=== PATIENT | female | born 1935 | race Caucasian/White ===

== ENCOUNTER 2018-02-19 14:59 | Inpatient (IN) | payer OTHER ==
--- NOTE | 2018-02-19 15:18 | PDOC ---
Rapid Medical Evaluation Chief Complaint: Syncope/Near Syncope Time Seen by Provider: 02/19/18 15:09 Medical Evaluation: Allergies Allergy/AdvReac Type Severity Reaction Status Date / Time No Known Allergies Allergy Verified 02/19/18 15:10 Vital Signs Temp Pulse Resp BP Pulse Ox 98.1 F 85 20 141/66 99 02/19/18 15:07 02/19/18 15:07 02/19/18 15:07 02/19/18 15:07 02/19/18 15:07 02/19/18 15:14 The patient presents with a chief complaint of: felt dizzy while shopping today and fell backwards landing on her buttocks now c/o rt hip pain and inability to stand up. Pt with high cholsterol and stated was dizzy last week, no other complaints I have performed a brief in-person evaluation of this patient: vss, limited exam since pt is in w/c upon EMS arrival Pertinent physical exam findings: ambulatory, in no respiratory distress I have ordered the following: labs, cxr, ekg, head ct, carotoid duplex, hip xray, urine The patient will proceed to the ED for further evaluation. Discharge Disposition - Diagnosis Dizziness - Referrals - Patient Instructions - Post Discharge Activity
[2018-02-19 15:38] LABS: BASO % 0.4 % (0-2.0); EOS % 0.5 % (0-4.5); HEMATOCRIT 39.1 % (32.4-45.2); HEMOGLOBIN 12.6 GM/dL (10.7-15.3); LYMPH % 7.9 % (8-40); MCH 29.6 pg (25.7-33.7); MCHC 32.1 g/dl (32.0-36.0); MEAN CELL VOLUME 92.2 fl (80-96); MEAN PLT VOLUME 6.7 fl (7.5-11.1); MONO % 4.3 % (3.8-10.2); NEUT % 86.9 % (42.8-82.8); PLATELET COUNT 322 K/MM3 (134-434); RBC 4.24 M/mm3 (3.60-5.2); RDW 12.9 % (11.6-15.6); WHITE BLOOD COUNT 13.1 K/mm3 (4.0-10.0)
[2018-02-19 16:03] LABS: INR 0.98 (0.83-1.09); PROTHROMBIN TIME (PATIENT) 11.6 SEC (9.7-13.0)
--- NOTE | 2018-02-19 16:04 | PDOC ---
History of Present Illness <Ruth Davidson - Last Filed: 02/19/18 20:34> - General History Source: Patient - History of Present Illness Initial Comments: 02/19/18 18:15 The patient is an 82 year old female with a PMH of HTN and Hypothyroidism was BIBA after falling at a department store earlier today. Patient states she was standing at [employer] looking at sweaters when she suddenly felt a pressure in her head and fell to her R side hitting her hip but not her head, denies any LOC. Further denies any pre-fall chest pain, shortness of breath, lightheadedness, palpitations. Notes a h/o headache and loose stools for the last 2-3 days. No previous h/o similar falls. Has been evaluated by cardiology (Dr. Chung, Dr. Rae) on prior occasion and states she had a stress test last year which she believes was normal. Family history significant for [place] in father, sister with carotid endartectomy in 2017. NKDA Surgical: none reported Social: denies toxic habits PMD: Dr. Hooper As per EMR, patient last evaluated in our ED in 2014 for diaphoresis and dizziness. Serial troponins were negative and Echo showed EF 59%. <Leigh Amaro - Last Filed: 02/19/18 20:53> - General Chief Complaint: Syncope/Near Syncope Stated Complaint: FALL Time Seen by Provider: 02/19/18 15:09 Past History <Ruth Davidson - Last Filed: 02/19/18 20:34> - Past Medical History COPD: No Hypercholesterolemia: Yes Thyroid Disease: Yes (HYPO) - Immunization History Immunization Up to Date: Yes - Suicide/Smoking/Psychosocial Hx Smoking Status: No Smoking History: Never smoked Have you smoked in the past 12 months: No Number of Cigarettes Smoked Daily: 0 Information on smoking cessation initiated: No Hx Alcohol Use: No Drug/Substance Use Hx: No <Leigh Amaro - Last Filed: 02/19/18 20:53> - Past Medical History Allergies/Adverse Reactions: Allergies Allergy/AdvReac Type Severity Reaction Status Date / Time No Known Allergies Allergy Verified 02/19/18 15:10 Home Medications: Ambulatory Orders Ascorbic Acid [Vitamin C] 1,000 mg PO DAILY 08/11/12 Aspirin 162 mg PO DAILY 08/11/12 Docosahexanoic Acid/Epa [Fish Oil Softgel] 1 each PO DAILY 08/11/12 Levothyroxine [Synthroid -] 50 mcg PO DAILY 08/11/12 Simvastatin [Zocor -] 20 mg PO HS 08/11/12 Levothyroxine Sodium [Synthroid] 50 mcg PO DAILY tablet 03/03/13 Simvastatin [Zocor] 20 mg PO DAILY tablet 03/03/13 Calcium Carbonate/Vitamin D3 [Calcium 600-Vit D3 200 Tablet] 1 each PO DAILY Review of Systems - Review of Systems Constitutional: No: Chills, Fever HEENTM: No: Recent change in vision Respiratory: No: Cough, Shortness of Breath, Wheezing, Hemoptysis ABD/GI: No: Constipated, Diarrhea, Nausea, Vomiting : No: Burning, Dysuria <Leigh Amaro - Last Filed: 02/19/18 20:53> *Physical Exam - Vital Signs Last Vital Signs Temp Pulse Resp BP Pulse Ox 98.1 F 85 20 141/66 99 02/19/18 15:07 02/19/18 15:07 02/19/18 15:07 02/19/18 15:07 02/19/18 15:07 <Ruth Davidson - Last Filed: 02/19/18 20:34> - Vital Signs Last Vital Signs Temp Pulse Resp BP Pulse Ox 98.1 F 85 20 141/66 99 02/19/18 15:07 02/19/18 15:07 02/19/18 15:07 02/19/18 15:07 02/19/18 15:07 - Physical Exam General Appearance: Yes: Nourished, Appropriately Dressed HEENT: positive: Normal Voice, Hearing Grossly Normal. negative: TM Bulging, TM Dull, Lesions, [place] Neck: positive: Trachea midline, Supple Respiratory/Chest: positive: Lungs Clear, Normal Breath Sounds Cardiovascular: positive: S1, S2. negative: Edema, JVD Vascular Pulses: Dorsalis-Pedis (R): 2+, Doralis-Pedis (L): 2+ Gastrointestinal/Abdominal: positive: Normal Bowel Sounds, Soft. negative: Distended, Guarding, Rebound, Tenderness Musculoskeletal: negative: Vertebral Tenderness Extremity: positive: Normal Capillary Refill, Normal Inspection, Pelvis Stable, Other (R anterior thigh TTP, 2+ DP pulse, ROM with pain) <SondraLeigh - Last Filed: 02/19/18 20:53> Moderate Sedation - Procedure Monitoring Vital Signs: Procedure Monitoring Vital Signs Temperature 98.1 F 02/19/18 15:07 Pulse Rate 85 02/19/18 15:07 Respiratory Rate 20 02/19/18 15:07 Blood Pressure 141/66 02/19/18 15:07 O2 Sat by Pulse Oximetry (%) 99 02/19/18 15:07 <Ruth Davidson - Last Filed: 02/19/18 20:34> - Procedure Monitoring Vital Signs: Procedure Monitoring Vital Signs Temperature 98.1 F 02/19/18 15:07 Pulse Rate 85 02/19/18 15:07 Respiratory Rate 20 02/19/18 15:07 Blood Pressure 141/66 02/19/18 15:07 O2 Sat by Pulse Oximetry (%) 99 02/19/18 15:07 <SondraLeigh - Last Filed: 02/19/18 20:53> Heart Score/ECG Review - History History: Slightly suspicious - Electrocardiogram EKG: Normal - Age Age: >/= 65 - Risk Factors Risk Factors Heart Score: Yes Hx Hypercholesterolemia Based on the list above the patient has:: 1-2 risk factors - Troponin Troponin: </= normal limit - Score Heart Score - Total: 3 - ECG Impressions Normal ECG: Yes Comment:: 02/19/18 17:12 NSR HR 80, TWI in in V3, normal intervals, no deviations, QTc 468 <SondraLeigh - Last Filed: 02/19/18 20:53> ED Treatment Course - LABORATORY CBC & Chemistry Diagram: 02/19/18 15:22 02/19/18 15:22 - ADDITIONAL ORDERS Additional order review: Laboratory Results 02/19/18 02/19/18 02/19/18 19:05 15:22 15:22 PT with INR 11.60 INR 0.98 Sodium 140 Potassium 3.9 Chloride 106 Carbon Dioxide 26 Anion Gap 7 L BUN 18 Creatinine 0.8 Creat Clearance w eGFR > 60 Random Glucose 100 Calcium 8.3 L Total Bilirubin 0.3 AST 24 ALT 24 Alkaline Phosphatase 82 Creatine Kinase 100 Troponin I < 0.02 Total Protein 7.2 Albumin 3.8 Urine Color Straw Urine Appearance Clear Urine pH 7.0 Ur Specific [place] 1.011 Urine Protein Negative Urine Glucose (UA) Negative Urine Ketones Negative Urine Blood Negative Urine Nitrite Negative Urine Bilirubin Negative Urine Urobilinogen Normal Ur Leukocyte Esterase Negative 02/19/18 15:22 RBC 4.24 MCV 92.2 MCHC 32.1 RDW 12.9 MPV 6.7 L Neutrophils % 86.9 H Lymphocytes % 7.9 L D Monocytes % 4.3 Eosinophils % 0.5 Basophils % 0.4 <Ruth Davidson - Last Filed: 02/19/18 20:34> - LABORATORY CBC & Chemistry Diagram: 02/19/18 15:22 02/19/18 15:22 - ADDITIONAL ORDERS Additional order review: Laboratory Results 02/19/18 15:22 PT with INR 11.60 INR 0.98 <Leigh Amaro - Last Filed: 02/19/18 20:53> Medical Decision Making - Medical Decision Making 02/19/18 16:56 82 year old female presents following a fall w/o LOC or head trauma. Notes prodome of head pressure prior to fall. VS unremarkable. RLE tender at upper lateral thigh, full ROM with pain. No appreciable murmur. EKG in Triage shows NSR HR 80, flattened T waves in V3, Q waves in Heart Score 3 02/19/18 18:19 02/19/18 18:22 02/19/18 18:32 Troponin (-) x1 My read of Carotid Doppler shows no stenosis 02/19/18 19:14 Carotid Doppler negative Hip XR pending VSS Patient continues to decline pain medications 02/19/18 20:12 Hip XR shows possible acute on chronic vs. acute inferior pubic rami fracture. Suspect acute fracture given patient's focal tenderness over R anterior thigh VSS Will page hospitalist for admission. 02/19/18 20:45 Patient admitted to inpatient medicine service. Ortho consult pending. <Leigh Amaro - Last Filed: 02/19/18 20:53> *DC/Admit/Observation/Transfer - Discharge Dispostion Decision to Admit order: Yes <Ruth Davidson - Last Filed: 02/19/18 20:34> <Leigh Amaro - Last Filed: 02/19/18 20:53> Diagnosis at time of Disposition: Dizziness, Fracture of inferior pubic ramus, Syncope - Referrals Referrals: David Hooper MD [Primary Care Provider] -
[2018-02-19 16:05] LABS: ALBUMIN 3.8 g/dl (3.4-5.0); ALK PHOS 82 U/L (45-117); ANION GAP 7 MMOL/L (8-16); BILIRUBIN,TOTAL 0.3 mg/dL (0.2-1); BLOOD UREA NITROGEN 18 mg/dL (7-18); CALCIUM 8.3 mg/dL (8.5-10.1); CHLORIDE 106 mmol/L (98-107); CO2 26 mmol/L (21-32); CREATININE 0.8 mg/dL (0.55-1.3); GLUCOSE,RANDOM 100 mg/dL (74-106); POTASSIUM 3.9 mmol/L (3.5-5.1); SGOT/AST 24 U/L (15-37); SGPT/ALT 24 U/L (13-61); SODIUM 140 mmol/L (136-145); TOT PROT 7.2 g/dl (6.4-8.2)
--- NOTE | 2018-02-19 16:39 | PDOC ---
Attending Attestation - HPI HPI: 02/19/18 19:20 The patient is a 82 year old female, with a significant PMH of hyperthyroidism and HTN, who presents to the emergency department via BIBA for evaluation of a fall that occurred today. The patient states she was at [employer] looking at sweater when she felt pressure in her head and fell to her right side hitting her hip. The patient denies any head trauma,numbness or tingling. Denies chest pain, shortness of breath and dizziness. Denies fever, chills, nausea, vomit, diarrhea and constipation. Allergies: NKDA Past surgical history: None reported Social history: None reported PCP: Dr. Hooper Documentation prepared by Boogie Gaffney, acting as medical sales associate for Kailey Love MD. - Physicial Exam PE: 02/19/18 18:55 GENERAL: The patient is in no acute distress. HEAD: Normal with no signs of trauma. LUNGS: Breath sounds equal, clear to auscultation bilaterally. No wheezes, and no crackles. HEART:Regular rate and rhythm, normal S1 and S2 without murmur, rub or gallop. ABDOMEN: Soft, nontender, normoactive bowel sounds. No guarding, no rebound. No masses palpable. EXTREMITIES: +Tenderness to the right anterior hip NEUROLOGICAL: Cranial nerves II through XII grossly intact. Normal speech. No focal neurological deficits. MUSCULOSKELETAL: Back non-tender to palpation, no CVA tenderness SKIN: Warm, Dry, normal turgor, no rashes or lesions noted. Documentation prepared by Boogie Gaffney, acting as medical sales associate for Kailey Love MD. <Boogie Gaffney - Last Filed: 02/19/18 19:20> - Resident Resident Name: Leigh Amaro - ED Attending Attestation I have performed the following: I have examined & evaluated the patient, The case was reviewed & discussed with the resident, I agree w/resident's findings & plan, Exceptions are as noted - Medical Decision Making 02/22/18 20:57 Pending labs Pending Xray CT head Will plan to admit <Kailey Love - Last Filed: 02/22/18 21:03>
[2018-02-19 19:41] LABS: URINE APPEARANCE CLEAR; URINE BILIRUBIN NEGATIVE (<2.0 mg/dL); URINE COLOR STRAW; URINE GLUCOSE (UA) NEGATIVE (NEGATIVE); URINE KETONE NEGATIVE (NEGATIVE); URINE LEUK ESTERASE NEGATIVE (NEGATIVE); URINE NITRITE NEGATIVE (NEGATIVE); URINE PROTEIN NEGATIVE (NEGATIVE); URINE UROBILINOGEN NORMAL mg/dL (0.2-1.0)
[2018-02-19] MEDS ORDERED: morphine SULFATE 4 MG/ML VIAL IVPUSH ONE (20:06)
[2018-02-19] MEDS ORDERED: ONDANSETRON 4 MG/2 ML VIAL IVPUSH ONE (20:06)
--- NOTE | 2018-02-19 20:22 | PDOC ---
*Physical Exam - Vital Signs Last Vital Signs Temp Pulse Resp BP Pulse Ox 98.1 F 85 20 141/66 99 02/19/18 15:07 02/19/18 15:07 02/19/18 15:07 02/19/18 15:07 02/19/18 15:07 ED Treatment Course - LABORATORY CBC & Chemistry Diagram: 02/19/18 15:22 02/19/18 15:22 - ADDITIONAL ORDERS Additional order review: Laboratory Results 02/19/18 02/19/18 02/19/18 19:05 15:22 15:22 PT with INR 11.60 INR 0.98 Sodium 140 Potassium 3.9 Chloride 106 Carbon Dioxide 26 Anion Gap 7 L BUN 18 Creatinine 0.8 Creat Clearance w eGFR > 60 Random Glucose 100 Calcium 8.3 L Total Bilirubin 0.3 AST 24 ALT 24 Alkaline Phosphatase 82 Creatine Kinase 100 Troponin I < 0.02 Total Protein 7.2 Albumin 3.8 Urine Color Straw Urine Appearance Clear Urine pH 7.0 Ur Specific [place] 1.011 Urine Protein Negative Urine Glucose (UA) Negative Urine Ketones Negative Urine Blood Negative Urine Nitrite Negative Urine Bilirubin Negative Urine Urobilinogen Normal Ur Leukocyte Esterase Negative 02/19/18 15:22 RBC 4.24 MCV 92.2 MCHC 32.1 RDW 12.9 MPV 6.7 L Neutrophils % 86.9 H Lymphocytes % 7.9 L D Monocytes % 4.3 Eosinophils % 0.5 Basophils % 0.4 Medical Decision Making - Medical Decision Making 02/19/18 20:21 Pt was signed out to me. She [place]. She will be admitted for eval to telemetry unit. 02/19/18 20:22 UA normal; Chem normal; First cardiac enzyme normal WBC elevated at 13 and her Neutrophil count is high 02/19/18 20:[address] normal; no interval change; Carotid doppler shows no stenosis CXR same as previous *DC/Admit/Observation/Transfer Diagnosis at time of Disposition: Dizziness - Referrals Referrals: David Hooper MD [Primary Care Provider] - - Patient Instructions - Post Discharge Activity
[2018-02-19] MEDS ORDERED: morphine SULFATE 4 MG/ML VIAL ONE (20:51)
[2018-02-19] MEDS ORDERED: ONDANSETRON 4 MG/2 ML VIAL ONE (20:51)
--- NOTE | 2018-02-19 22:01 | PN ---
Teaching Attending Note Name of Resident: Kenna Higgins ATTENDING PHYSICIAN STATEMENT I saw and evaluated the patient. I reviewed the resident's note and discussed the case with the resident. I agree with the resident's findings and plan as documented. SUBJECTIVE: Patient is an 82 year old woman with a PMH of HTN and Hypothyroidism presenting after falling at [employer] earlier today. Says she was standing and looking at sweaters when she suddenly felt a pressure in her head and fell to her right side hitting her hip but not her head, denies any LOC. Further denies any pre- fall chest pain, shortness of breath, lightheadedness, palpitations. She says that one day last week, she developed a severe headache, felt sick to her stomach with cramps and the had on bout of soft stool with stool incontinence " I could barely make it to the bathroom" - No associated fever or chills at that time. Last year, she was evaluated by cardiology (Dr. Chung, Dr. Rae) - had a stress test last year which she believes was normal. Family history significant for [place] in father, sister with carotid endartectomy in 2017. OBJECTIVE: Alert Vital Signs Period Temp Pulse Resp BP Sys/Barrett Pulse Ox Last 24 Hr 98.1 F-98.2 F 80-87 18-20 128-141/65-67 96-99 HEENT: No Jaundice, eye redness or discharge, PERRLA, EOMI. Normocephalic, atraumatic. External ears are normal and hearing is grossly intact. No nasal discharge. Neck: Supple, nontender. No palpable adenopathy or thyromegaly. No JVD Chest: Good effort. Clear to auscultation and percussion. Heart: Regular. No S3, rub or murmur Abdomen: Not distended, soft, nontender and no HSM. No rebound or guarding. Normoactive bowel sounds. Ext: Peripheral pulses intact. No leg edema. Tender right hip and limited ROM of right hip. Skin: Warm and dry. No petechiae, rash or ecchymosis. Neuro: Alert. Oriented x3. CN 2-12 grossly intact. Sensation grossly intact in all four extremities and DTR are symmetric. Current Medications Generic Name Dose Route Start Last Admin Trade Name Freq PRN Reason Stop Dose Admin Heparin Sodium (Porcine) 5,000 unit 02/19/18 22:15 Heparin - SQ TID [facility] Home Medications Medication Instructions Recorded Simvastatin [Zocor] 20 mg PO HS tablet 03/03/13 Levothyroxine [Synthroid -] 50 mcg PO DAILY 02/19/18 Abnormal Lab Results 02/19/18 02/19/18 15:22 15:22 WBC 13.1 H MPV 6.7 L Absolute Neuts (auto) 11.4 H Neutrophils % 86.9 H Lymphocytes % 7.9 L D Anion Gap 7 L Calcium 8.3 L ASSESSMENT AND PLAN: 1. Syncope and Right Pubic Ramus Fracture - Etiology of syncope is unclear. Recent ? viral syndrome may be the culprit. Head CT is negative. Will admit her to telemetry. Xray shows a right pubic ramus hairline fracture. Consult Ortho and PT. Has flat t wave on V3. Will repeat EKG and Troponin, get ECHO, TSH, brain MRI and hydrate her. Review official report of carotid doppler. Implement fall precautions, neurochecks and consult neurology. 2. DVT prophylaxis - Lovenox 40 mg SQ q 24 hours. 3. Advance directives - Full code
[2018-02-19] MEDS ORDERED: MORPHINE SULFATE 2 MG/ML VIAL IVPUSH PRN (22:31)
[2018-02-19] MEDS ORDERED: ACETAMINOPHEN 500 MG TABLET (FP) PO PRN (22:32)
--- NOTE | 2018-02-19 22:34 | HP ---
CHIEF COMPLAINT: hip pain, s/p fall PCP: Rufus HISTORY OF PRESENT ILLNESS: The patient is a 82 year old female with a PMH of hypothyroidism, osteoporosis, HTN that presented to the hospital BIBA s/p syncope. She was in her usual state of health, shopping in department store, when she felt pressure in her head and suddenly fell down to the right side. She states that she hit her hip. The fall was not witnessed but right after it happened, a stranger helped her to sit down on a chair and called ambulance. She denies hitting her head, shoulder, LOC , seizures, palpitations, urination, biting her tongue. She never had episode of syncope, balance problems, denies using cane/walker. ER course was notable for: (1) X ray, CT head (2)CBC, CMP (3)carotid doppler PAST MEDICAL HISTORY: as above PAST SURGICAL HISTORY: hysterectomy, bladder lift, cataracts Social History: Smoking:denies Alcohol:denies Drugs:denies She lives alone. Family History: mother; due to abdominal aneurysm, father: [place], brother aneurysm age of 38, brother: stroke age of 70 daughter: COPD Allergies No Known Allergies Allergy (Verified 02/19/18 15:10) HOME MEDICATIONS: Home Medications Medication Instructions Recorded Simvastatin [Zocor] 20 mg PO HS tablet 03/03/13 Levothyroxine [Synthroid -] 50 mcg PO DAILY 02/19/18 REVIEW OF SYSTEMS CONSTITUTIONAL: Absent: fever, chills, diaphoresis, generalized weakness, malaise, loss of appetite, weight change HEENT: Absent: rhinorrhea, nasal congestion, throat pain CARDIOVASCULAR: syncope, Absent: chest pain, palpitations, irregular heart rate, lightheadedness, peripheral edema RESPIRATORY: Absent: cough, shortness of breath, dyspnea with exertion, orthopnea, wheezing, stridor, hemoptysis GASTROINTESTINAL: Absent: abdominal pain, abdominal distension, nausea, vomiting, diarrhea, constipation GENITOURINARY: Absent: dysuria, frequency, urgency, hesitancy, hematuria, flank pain, genital pain MUSCULOSKELETAL: hip pain, anterior thigh pain Absent: myalgia, arthralgia, joint swelling, back pain, neck pain SKIN: Absent: rash, itching, pallor NEUROLOGIC: Absent: headache, focal weakness or paresthesias, dizziness, unsteady gait, seizure PSYCHIATRIC: Absent: anxiety, depression PHYSICAL EXAMINATION Vital Signs - 24 hr 02/19/18 02/19/18 02/19/18 15:07 18:25 21:52 Temperature 98.1 F 98.2 F Pulse Rate 85 Pulse Rate [ 87 80 Apical] Respiratory 20 18 20 Rate Blood Pressure 141/66 Blood Pressure 128/67 130/65 [Right Arm] O2 Sat by Pulse 99 96 96 Oximetry (%) GENERAL: Awake, alert, and fully oriented, in no acute distress. HEAD: Normal with no signs of trauma. EYES: Pupils equal, round and reactive to light, extraocular movements intact, sclera anicteric, conjunctiva clear. EARS, NOSE, THROAT: Ears normal, nares patent, oropharynx clear without exudates. Moist mucous membranes. NECK: Normal range of motion, supple without lymphadenopathy, JVD, or masses. LUNGS: Breath sounds equal, clear to auscultation bilaterally. No wheezes, and no crackles. No accessory muscle use. HEART: Regular rate and rhythm, normal S1 and S2 without murmur, rub or gallop. ABDOMEN: Soft, nontender, not distended, normoactive bowel sounds, no guarding, no rebound, no masses. MUSCULOSKELETAL:Limited ROM in right hip due to pain (flexion and extension), tenderness to palpation over anterior thigh, no other joint tenderness, pain, limited ROM. UPPER EXTREMITIES: No peripheral edema. LOWER EXTREMITIES: 2= DP pulses b/l, no peripheral edema. NEUROLOGICAL: Non focal, gait not observed. PSYCHIATRIC: Cooperative. Good eye contact. Appropriate mood and affect. SKIN: Warm, dry, normal turgor, no rashes. Laboratory Results - last 24 hr 02/19/18 02/19/18 02/19/18 15:22 15:22 15:22 WBC 13.1 H RBC 4.24 Hgb 12.6 Hct 39.1 MCV 92.2 MCH 29.6 MCHC 32.1 RDW 12.9 Plt Count 322 MPV 6.7 L Absolute Neuts (auto) 11.4 H Neutrophils % 86.9 H Lymphocytes % 7.9 L D Monocytes % 4.3 Eosinophils % 0.5 Basophils % 0.4 Nucleated RBC % 0 PT with INR 11.60 INR 0.98 Sodium 140 Potassium 3.9 Chloride 106 Carbon Dioxide 26 Anion Gap 7 L BUN 18 Creatinine 0.8 Creat Clearance w eGFR > 60 Random Glucose 100 Calcium 8.3 L Total Bilirubin 0.3 AST 24 ALT 24 Alkaline Phosphatase 82 Creatine Kinase 100 Troponin I < 0.02 Total Protein 7.2 Albumin 3.8 Urine Color Urine Appearance Urine pH Ur Specific [place] Urine Protein Urine Glucose (UA) Urine Ketones Urine Blood Urine Nitrite Urine Bilirubin Urine Urobilinogen Ur Leukocyte Esterase 02/19/18 19:05 WBC RBC Hgb Hct MCV MCH MCHC RDW Plt Count MPV Absolute Neuts (auto) Neutrophils % Lymphocytes % Monocytes % Eosinophils % Basophils % Nucleated RBC % PT with INR INR Sodium Potassium Chloride Carbon Dioxide Anion Gap BUN Creatinine Creat Clearance w eGFR Random Glucose Calcium Total Bilirubin AST ALT Alkaline Phosphatase Creatine Kinase Troponin I Total Protein Albumin Urine Color Straw Urine Appearance Clear Urine pH 7.0 Ur Specific [place] 1.011 Urine Protein Negative Urine Glucose (UA) Negative Urine Ketones Negative Urine Blood Negative Urine Nitrite Negative Urine Bilirubin Negative Urine Urobilinogen Normal Ur Leukocyte Esterase Negative ASSESSMENT/PLAN: The patient is a 82 year old female with a PMH of hypothyroidism, osteoporosis, HTN that presented to the hospital BIBA s/p syncope. She was found to have hip fracture. s/p syncope: -possibly vasovagal, also need to r/o ACS, neurogenic -Head CT negative, carotids negative, f/u MRI -f/u ECHO -troponin neg, f/u next one -ekg: NSR 80, flattened t waves in v3, q waves, no acute changes, f/u EKG in AM -neuro checks -Neurology consulted -f/u HgA1c, f/u TSH Hip fracture: -hip/pelvis x ray: mild focal deformity in right inferior pubic ramus -Ortho consulted, will f/u recommendations -pain control Hypothyroidism: -continue home medications Hyperlipidemia: -cont home meds F/E/N: no/no changes/low Na DVT PPX: Heparin sq Dispo: obs med surg Problem List - Problem (1) Fracture of inferior pubic ramus Code(s): S32.599A - OTH FRACTURE OF UNSP PUBIS, INIT ENCNTR FOR CLOSED FRACTURE (2) Syncope Code(s): R55 - SYNCOPE AND COLLAPSE (3) Hyperlipidemia Code(s): E78.5 - HYPERLIPIDEMIA, UNSPECIFIED Qualifiers: Hyperlipidemia type: Pure hypercholesterolemia (4) Hypothyroid Code(s): E03.9 - HYPOTHYROIDISM, UNSPECIFIED Qualifiers: Hypothyroidism type: unspecified Qualified Code(s): E03.9 - Hypothyroidism , unspecified (5) Vaso vagal episode Code(s): R55 - SYNCOPE AND COLLAPSE Visit type - Emergency Visit Emergency Visit: Yes ED Registration Date: 02/19/18 Care time: The patient presented to the Emergency Department on the above date and was hospitalized for further evaluation of their emergent condition. - New Patient This patient is new to me today: Yes Date on this admission: 02/20/18 - Critical Care Critical Care patient: No
[2018-02-19] MEDS ORDERED: HEPARIN NA (PORCINE) 5,000 UNITS/ML 1ML VIAL ONE (23:30)
[2018-02-19] MEDS: HEPARIN NA (PORCINE) 5,000 UNITS/ML 1ML VIAL SQ SCH (23:32)
[2018-02-20 06:09] LABS: BASO % 0.2 % (0-2.0); EOS % 0.3 % (0-4.5); HEMATOCRIT 37.6 % (32.4-45.2); HEMOGLOBIN 12.3 GM/dL (10.7-15.3); LYMPH % 9.2 % (8-40); MCH 30.3 pg (25.7-33.7); MCHC 32.8 g/dl (32.0-36.0); MEAN CELL VOLUME 92.2 fl (80-96); MONO % 4.8 % (3.8-10.2); NEUT % 85.5 % (42.8-82.8); PLATELET COUNT 291 K/MM3 (134-434); RBC 4.08 M/mm3 (3.60-5.2); RDW 12.6 % (11.6-15.6); WHITE BLOOD COUNT 10.9 K/mm3 (4.0-10.0)
[2018-02-20 06:20] LABS: INR 1.05 (0.83-1.09); PROTHROMBIN TIME (PATIENT) 12.4 SEC (9.7-13.0)
[2018-02-20 06:23] LABS: ACTIVATED PTT 25.9 SECONDS (25.2-36.5)
[2018-02-20] MEDS: HEPARIN NA (PORCINE) 5,000 UNITS/ML 1ML VIAL SQ SCH ×3 (06:52→21:28)
[2018-02-20] MEDS ORDERED: LEVOTHYROXINE NA 50 MCG TABLET (FP) PO SCH (07:00)
[2018-02-20 07:27] LABS: ALBUMIN 3.5 g/dl (3.4-5.0); ALK PHOS 63 U/L (45-117); ANION GAP 7 MMOL/L (8-16); BILIRUBIN,TOTAL 0.7 mg/dL (0.2-1); BLOOD UREA NITROGEN 13 mg/dL (7-18); CALCIUM 8.5 mg/dL (8.5-10.1); CHLORIDE 106 mmol/L (98-107); CHOLESTEROL 150 mg/dL (50-200); CO2 26 mmol/L (21-32); CREATININE 0.7 mg/dL (0.55-1.3); GLUCOSE,RANDOM 113 mg/dL (74-106); HDL CHOLESTEROL 57 mg/dL (40-60); MAGNESIUM 2.2 mg/dL (1.8-2.4); PHOSPHOROUS 3.2 mg/dL (2.5-4.9); POTASSIUM 3.8 mmol/L (3.5-5.1); SGOT/AST 17 U/L (15-37); SGPT/ALT 21 U/L (13-61); SODIUM 139 mmol/L (136-145); TOT PROT 6.6 g/dl (6.4-8.2); TRIGLYCERIDES 104 mg/dL (0-150)
--- NOTE | 2018-02-20 14:26 | PN ---
Physical Exam: SUBJECTIVE: Patient seen and examined. She complains of right groin pain. OBJECTIVE: Vital Signs Period Temp Pulse Resp BP Sys/Barrett Pulse Ox Last 24 Hr 98 F-98.2 F 70-87 17-20 123-141/52-72 95-100 GENERAL: The patient is awake, alert, and fully oriented, in no acute distress. LUNGS: Breath sounds equal, clear to auscultation bilaterally, no wheezes, no crackles, no accessory muscle use. HEART: Regular rate and rhythm, S1, S2 without murmur, rub or gallop. ABDOMEN: Soft, nontender, nondistended, normoactive bowel sounds, no guarding, no rebound, no hepatosplenomegaly, no masses. EXTREMITIES: 2+ pulses, warm, well-perfused, no edema. Decreased ROM right hip secondary to pain. Laboratory Results - last 24 hr 02/19/18 02/19/18 02/19/18 15:22 15:22 15:22 WBC 13.1 H RBC 4.24 Hgb 12.6 Hct 39.1 MCV 92.2 MCH 29.6 MCHC 32.1 RDW 12.9 Plt Count 322 MPV 6.7 L Absolute Neuts (auto) 11.4 H Neutrophils % 86.9 H Lymphocytes % 7.9 L D Monocytes % 4.3 Eosinophils % 0.5 Basophils % 0.4 Nucleated RBC % 0 PT with INR 11.60 INR 0.98 PTT (Actin FS) Sodium 140 Potassium 3.9 Chloride 106 Carbon Dioxide 26 Anion Gap 7 L BUN 18 Creatinine 0.8 Creat Clearance w eGFR > 60 Random Glucose 100 Calcium 8.3 L Phosphorus Magnesium Total Bilirubin 0.3 AST 24 ALT 24 Alkaline Phosphatase 82 Creatine Kinase 100 Troponin I < 0.02 Total Protein 7.2 Albumin 3.8 Triglycerides Cholesterol Total LDL Cholesterol HDL Cholesterol TSH Urine Color Urine Appearance Urine pH Ur Specific [place] Urine Protein Urine Glucose (UA) Urine Ketones Urine Blood Urine Nitrite Urine Bilirubin Urine Urobilinogen Ur Leukocyte Esterase Blood Type Antibody Screen 02/19/18 02/20/18 02/20/18 19:05 05:08 05:08 WBC 10.9 H RBC 4.08 Hgb 12.3 Hct 37.6 MCV 92.2 MCH 30.3 MCHC 32.8 RDW 12.6 Plt Count 291 MPV 7.0 L Absolute Neuts (auto) 9.3 H Neutrophils % 85.5 H Lymphocytes % 9.2 Monocytes % 4.8 Eosinophils % 0.3 Basophils % 0.2 Nucleated RBC % 0 PT with INR 12.40 INR 1.05 PTT (Actin FS) 25.9 Sodium Potassium Chloride Carbon Dioxide Anion Gap BUN Creatinine Creat Clearance w eGFR Random Glucose Calcium Phosphorus Magnesium Total Bilirubin AST ALT Alkaline Phosphatase Creatine Kinase Troponin I Total Protein Albumin Triglycerides Cholesterol Total LDL Cholesterol HDL Cholesterol TSH Urine Color Straw Urine Appearance Clear Urine pH 7.0 Ur Specific [place] 1.011 Urine Protein Negative Urine Glucose (UA) Negative Urine Ketones Negative Urine Blood Negative Urine Nitrite Negative Urine Bilirubin Negative Urine Urobilinogen Normal Ur Leukocyte Esterase Negative Blood Type Antibody Screen 02/20/18 02/20/18 02/20/18 05:08 05:08 08:44 WBC RBC Hgb Hct MCV MCH MCHC RDW Plt Count MPV Absolute Neuts (auto) Neutrophils % Lymphocytes % Monocytes % Eosinophils % Basophils % Nucleated RBC % PT with INR INR PTT (Actin FS) Sodium 139 Potassium 3.8 Chloride 106 Carbon Dioxide 26 Anion Gap 7 L BUN 13 Creatinine 0.7 Creat Clearance w eGFR > 60 Random Glucose 113 H Calcium 8.5 Phosphorus 3.2 Magnesium 2.2 Total Bilirubin 0.7 AST 17 ALT 21 Alkaline Phosphatase 63 Creatine Kinase Troponin I < 0.02 Total Protein 6.6 Albumin 3.5 Triglycerides 104 Cholesterol 150 Total LDL Cholesterol 76 HDL Cholesterol 57 TSH 1.78 Urine Color Urine Appearance Urine pH Ur Specific [place] Urine Protein Urine Glucose (UA) Urine Ketones Urine Blood Urine Nitrite Urine Bilirubin Urine Urobilinogen Ur Leukocyte Esterase Blood Type O POSITIVE O POSITIVE Antibody Screen Negative Active Medications Generic Name Dose Route Start Last Admin Trade Name Katia PRN Reason Stop Dose Admin Acetaminophen 500 mg 02/19/18 22:32 Tylenol - PO Q6H PRN PAIN LEVEL 1 - 3 Atorvastatin Calcium 10 mg 02/20/18 22:00 Lipitor - PO HS JULIO Heparin Sodium (Porcine) 5,000 unit 02/19/18 22:15 02/20/18 14:25 Heparin - SQ 5,000 unit TID JULIO Administration Levothyroxine Sodium 50 mcg 02/20/18 07:00 02/20/18 07:54 Synthroid - PO 50 mcg DAILY@0700 [facility] Administration Morphine Sulfate 2 mg 02/19/18 22:31 Morphine Sulfate IVPUSH Q6H PRN PAIN LEVEL 6-10 ASSESSMENT/PLAN: This is an 82 year old woman with a history of HTN, hypothyroidism, osteoporosis who presented to the ED with right hip pain after a fall. 1. Right inferior pubic ramus fracture secondary to fall - Patient has significant pain requiring IV pain medication and preventing her from ambulating - Physical therapy - Awaiting ortho eval - She will likely need subacute rehab as she is unable to ambulate safely and is at risk of falling 2. No evidence for syncope 3. Hypothyroidism - Continue Synthroid 4. Hyperlipidemia - Continue Lipitor Visit type - Emergency Visit Emergency Visit: Yes ED Registration Date: 02/19/18 Care time: The patient presented to the Emergency Department on the above date and was hospitalized for further evaluation of their emergent condition. - New Patient This patient is new to me today: Yes Date on this admission: 02/20/18 - Critical Care Critical Care patient: No - Discharge Referral Referred to [facility] Med P.C.: No
[2018-02-20 14:55] VITALS: BMI 23.2
--- NOTE | 2018-02-20 15:43 | EKG ---
Test Reason : Blood Pressure : / mmHG Vent. Rate : 072 BPM Atrial Rate : 072 BPM P-R Int : 180 ms QRS Dur : 086 ms QT Int : 410 ms P-R-T Axes : 049 019 047 degrees QTc Int : 448 ms SINUS RHYTHM WITH PREMATURE ATRIAL COMPLEXES NONSPECIFIC ST ABNORMALITY ABNORMAL ECG WHEN COMPARED WITH ECG OF 19-FEB-2018 15:33, PREMATURE ATRIAL COMPLEXES ARE NOW PRESENT NONSPECIFIC T WAVE ABNORMALITY NO LONGER EVIDENT IN ANTERIOR LEADS Confirmed by RAHUL CUNHA, KING ([id number]) on 02/20/2018 3:43:36 PM Referred By: Juan CHONG Confirmed By:KING KAY MD
--- NOTE | 2018-02-20 15:50 | EKG ---
Test Reason : Blood Pressure : / mmHG Vent. Rate : 080 BPM Atrial Rate : 080 BPM P-R Int : 178 ms QRS Dur : 084 ms QT Int : 406 ms P-R-T Axes : 050 012 035 degrees QTc Int : 468 ms NORMAL SINUS RHYTHM NONSPECIFIC ST ABNORMALITY ABNORMAL ECG WHEN COMPARED WITH ECG OF 17-JAN-2015 17:56, NO SIGNIFICANT CHANGE WAS FOUND Confirmed by KING KAY MD ([id number]) on 02/20/2018 3:50:02 PM Referred By: Confirmed By:KING KAY MD
--- NOTE | 2018-02-20 18:21 | CONSULT ---
Consult - text type - Consultation Consultation Note: NEUROLOGY CONSULTATION is greatly appreciated: This 82 yo RH woman lives with her daughter. Case discussed with Dr. Glesaon. She was seen by me many (>10) years ago with numbness and tingling in her feet. This had been slowly progressive since early adulthood and was associated with prominent Pes cavus and hammer toes. This constellation suggested inherited neuropathy such as [id number]. Patient has not seen neurologist in all these many years and is under the impression that her sensory loss is "from her back." Now admitted after a fall in [place] while turning (to the right) resulting in Non-displaced right pubic ramus fracture. Pt felt a "weird feeling" in her head as she fell but denies lightheadedness, vertigo, other prodromal symptoms. There was no LOC and no head trauma. CT of head (reviewed): Normal MRI of brain (reviewed): scattered microvascular changes Carotid duplex doppler: Unremarkable EXAM: No bruits. Cor reg Marked Pes cavus and hammer toes NEURO: MS/speech: Normal CN II-XII: normal without Nystagmus Motor: No drift, tremor, or cogwheeling. Intrinsic hand muscles 4/5 with early clawing and atrophy Ankle dorsiflexion 4/5. Areflexic. Cor: No FTN Dystaxia Sensory: Decreased vibration to the mid-calf level. Gait: Deferred. IMP: Non-focal exam sig for a chronic sensorimotor Peripheral Neuropathy most c/ w Qiigkke-Wjsww-Ajdkj (CMT) with ataxia Doubt syncope. SUGGEST: Mobilize as per Ortho SNF for rehab and gait training with walker. Thank you very much, Angel Renee MD
--- NOTE | 2018-02-20 18:24 | CONSULT ---
Consult - text type - Consultation Consultation Note: FULL CONSULT DICTATED IMP: R INF PUBIC RAMUS FX PLAN: PT-WBAT, OOB WITH ASSISTANCE, DC TO SNF UNTIL ABLE TO AMBULATE INDEPENDENTLY
[2018-02-20] MEDS ORDERED: ATORVASTATIN CA 10 MG TABLET (FP) PO SCH (22:00)
[2018-02-20] MEDS ORDERED: MORPHINE SULFATE 2 MG/ML VIAL IVPUSH PRN (22:45)
[2018-02-21] MEDS: HEPARIN NA (PORCINE) 5,000 UNITS/ML 1ML VIAL SQ SCH ×3 (05:48→21:55)
[2018-02-21] MEDS: LEVOTHYROXINE NA 50 MCG TABLET (FP) PO SCH (06:00)
--- NOTE | 2018-02-21 09:06 | CONS ---
ORTHOPEDIC CONSULTATION DATE OF CONSULTATION: 02/20/2018 HISTORY OF PRESENT ILLNESS: Patient is an 82-year-old female status post fall complaining of pain in her right groin region with difficulty ambulating. 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 PHYSICAL EXAMINATION: MUSCULOSKELETAL: She has increased pain with straight leg raise on her right side, but can do it, but with pain referred to her groin. No pain with internal/external rotation of her hip. Good motion of knee, ankle, and toes. Otherwise, neurovascularly intact. Equal limb lengths. RADIOLOGY: X-rays shows a right inferior pubic ramus fracture. IMPRESSION: Right inferior pubic ramus fracture. PLAN: Weight-bearing as tolerated with analgesics. Physical therapy. Out of bed with assistance. SCDs bilaterally for DVT prophylaxis. Discharge planning to SNF until patient is able to be at home independently. ROEL LU M.D. [id number]
[2018-02-21] MEDS: ACETAMINOPHEN 500 MG TABLET (FP) PO PRN ×2 (09:14→21:56)
--- NOTE | 2018-02-21 18:11 | PN ---
Physical Exam: SUBJECTIVE: Patient seen and examined at bed side this morning. States her pain in the right LE is better. Denies chest pain, sob, cough ,palpitation, abdominal pain, nausea or vomiting. BM today. Bladder habit normal. Sleep/ Appetite normal. no acute overnight events. OBJECTIVE: Vital Signs Period Temp Pulse Resp BP Sys/Barrett Pulse Ox Last 24 Hr 97.9 F-98.5 F 69-75 18-20 116-135/56-81 GENERAL: Elderly female, lying in bed, is awake, alert, and fully oriented, in no acute distress. HEAD: Normal with no signs of trauma. EYES: EOM intact, no pallor or icterus. ENT: Ears normal, moist mucous membranes. NECK: Supple. LUNGS: Breath sounds equal, clear to auscultation bilaterally, no wheezes, no crackles, no accessory muscle use. HEART: Regular rate and rhythm, S1, S2 without murmur. ABDOMEN: Soft, nontender, no organomegaly. UPPER EXTREMITIES: 2+ pulses, warm, well-perfused, no edema. LOWER EXTREMITIES: Bruises in the right buttock, tenderness on palpation in the right inguinal area, ROM limited, pulses intact. NEUROLOGICAL: No facial droop, ROM limited on the right lower ext, Normal speech , gait not observed. PSYCH: Normal mood, normal affect. SKIN: Warm, dry, normal turgor, no rashes or lesions noted Active Medications Generic Name Dose Route Start Last Admin Trade Name Freq PRN Reason Stop Dose Admin Acetaminophen 500 mg 02/20/18 22:45 02/21/18 09:14 Tylenol - PO 500 mg Q6H PRN Administration PAIN LEVEL 1 - 3 Atorvastatin Calcium 10 mg 02/21/18 22:00 Lipitor - PO HS JULIO Heparin Sodium (Porcine) 5,000 unit 02/21/18 06:00 02/21/18 14:54 Heparin - SQ 5,000 unit TID JULIO Administration Levothyroxine Sodium 50 mcg 02/21/18 07:00 02/21/18 06:00 Synthroid - PO 50 mcg DAILY@0700 JULIO Administration Morphine Sulfate 2 mg 02/20/18 22:45 Morphine Sulfate IVPUSH Q6H PRN PAIN LEVEL 6-10 ASSESSMENT/PLAN: The patient is a 82 year old female with a PMH of hypothyroidism, osteoporosis, HTN that presented to the [facility] s/p mechanical fall. Patient denies syncope. # Right inferior pubic ramus fracture s/p mechanical fall Patient fell at [employer] while shopping. Denies syncopal episode. Ortho consult appreciated. Recommends SNF PT, DVT px There was questionable episode of syncope, brain MRI was done which showed no acute pathology, carotid doppler done: no stenosis. # Hypothyroidsim Continue Levothyroxine 50 mcg # HLD Conitnue Lipitor 10mg HS # FEN NOt on IV fluids Electrolytes WNL Sodium controlled diet # Prophylaxis For DVT: ON Heparin 5000 IU sq TID For GI: Not indicated # Code Status: Full Code # Dispo: Awaiting SNF placement. outside maintenance worker on board. Illness, Investigation and Plan of care explained to the patient. She verbalized understanding. Case discussed with Dr. Choudhury. Visit type - Emergency Visit Emergency Visit: Yes ED Registration Date: 02/20/18 Care time: The patient presented to the Emergency Department on the above date and was hospitalized for further evaluation of their emergent condition. - New Patient This patient is new to me today: Yes Date on this admission: 02/21/18 - Critical Care Critical Care patient: No - Discharge Referral Referred to [facility] Med P.C.: No
--- NOTE | 2018-02-21 18:38 | PN ---
Teaching Attending Note Name of Resident: Tejal Fang ATTENDING PHYSICIAN STATEMENT I saw and evaluated the patient. I reviewed the resident's note and discussed the case with the resident. I agree with the resident's findings and plan as documented. SUBJECTIVE: Patient reports right groin pain, otherwise she has no complaints. OBJECTIVE: Vital Signs Period Temp Pulse Resp BP Sys/Barrett Pulse Ox Last 24 Hr 97.9 F-98.5 F 69-75 18-20 116-135/56-81 GENERAL: The patient is awake, alert, and fully oriented, in no acute distress. LUNGS: Breath sounds equal, clear to auscultation bilaterally, no wheezes, no crackles, no accessory muscle use. HEART: Regular rate and rhythm, S1, S2 without murmur, rub or gallop. ABDOMEN: Soft, nontender, nondistended, normoactive bowel sounds, no guarding, no rebound, no hepatosplenomegaly, no masses. EXTREMITIES: 2+ pulses, warm, well-perfused, no edema. Decreased ROM right hip secondary to pain. Current Medications Generic Name Dose Route Start Last Admin Trade Name Freq PRN Reason Stop Dose Admin Acetaminophen 500 mg 02/20/18 22:45 02/21/18 09:14 Tylenol - PO 500 mg Q6H PRN Administration PAIN LEVEL 1 - 3 Atorvastatin Calcium 10 mg 02/21/18 22:00 Lipitor - PO HS JULIO Heparin Sodium (Porcine) 5,000 unit 02/21/18 06:00 02/21/18 14:54 Heparin - SQ 5,000 unit TID JULIO Administration Levothyroxine Sodium 50 mcg 02/21/18 07:00 02/21/18 06:00 Synthroid - PO 50 mcg DAILY@0700 [facility] Administration Morphine Sulfate 2 mg 02/20/18 22:45 Morphine Sulfate IVPUSH Q6H PRN PAIN LEVEL 6-10 ASSESSMENT AND PLAN: This is an 82 year old woman with a history of HTN, hypothyroidism, osteoporosis who presented to the ED with right hip pain after a fall. 1. Right inferior pubic ramus fracture secondary to fall - Pain is improving - Awaiting physical therapy - Ortho, neuro evals appreciated - She will likely need subacute rehab as she is unable to ambulate safely and is at risk of falling 2. No evidence for syncope 3. Hypothyroidism - Continue Synthroid 4. Hyperlipidemia - Continue Lipitor
[2018-02-21] MEDS ORDERED: ATORVASTATIN CA 10 MG TABLET (FP) PO SCH (22:00)
[2018-02-22] MEDS: HEPARIN NA (PORCINE) 5,000 UNITS/ML 1ML VIAL SQ SCH ×2 (05:57→14:32)
[2018-02-22] MEDS: LEVOTHYROXINE NA 50 MCG TABLET (FP) PO SCH (06:09)
[2018-02-22 08:24] LABS: HEMATOCRIT 37.5 % (32.4-45.2); HEMOGLOBIN 12.4 GM/dL (10.7-15.3); MCH 30.2 pg (25.7-33.7); MEAN CELL VOLUME 91.6 fl (80-96); PLATELET COUNT 284 K/MM3 (134-434); WHITE BLOOD COUNT 11.9 K/mm3 (4.0-10.0)
[2018-02-22 09:38] LABS: ANION GAP 7 MMOL/L (8-16); BLOOD UREA NITROGEN 12 mg/dL (7-18); CALCIUM 8.3 mg/dL (8.5-10.1); CHLORIDE 106 mmol/L (98-107); CO2 26 mmol/L (21-32); CREATININE 0.7 mg/dL (0.55-1.3); GLUCOSE,RANDOM 113 mg/dL (74-106); POTASSIUM 4.2 mmol/L (3.5-5.1); SODIUM 139 mmol/L (136-145)
--- NOTE | 2018-02-22 10:07 | PN ---
Progress Note (short form) - Note Progress Note: Hospitalist/ALARM INSTALLATION TECHNICIAN Gabino to document today. For SNF.
--- NOTE | 2018-02-22 14:13 | ECHO ---
Name: BELTRAN GIBBONS Exam:Adult Echocardiogram Study Date: 02/22/2018 09:57 AM Age: 82 yrs Reason For Study: SYNCOPE Height: 64 in Weight: 127 lb BSA: 1.6 m2 MMode/2D Measurements & Calculations IVSd: 0.96 cm Ao root diam: 3.2 cm LVIDd: 3.3 cm LA dimension: 2.9 cm LVIDs: 2.4 cm LVPWd: 0.76 cm EDV(Teich): 43.2 ml ESV(Teich): 20.5 ml Doppler Measurements & Calculations MV E max leslie: 47.5 cm/sec AI P1/2t: 560.6 msec MV A max leslie: 92.6 cm/sec MV E/A: 0.51 MV dec time: 0.08 sec AI max leslie: 227.7 cm/sec TR max leslie: 231.4 cm/sec AI max P.7 mmHg TR max P.4 mmHg AI dec slope: 119.0 cm/sec2 Med Peak E' Leslie: 4.8 cm/sec PI Vmax: 153.4 cm/sec Med E/e': 9.9 Lat Peak E' Leslie: 8.2 cm/sec Lat E/e': 5.8 Procedure The study was technically difficult with many images being suboptimal in quality. Left Ventricle Ejection Fraction = 55%. There is moderate posterior wall hypokinesis. Right Ventricle The right ventricle is normal in size and function. There is normal right ventricular wall thickness. Atria Normal left and right atrial size and function. Mitral Valve The mitral valve is normal in structure and function. There is trace mitral regurgitation. Tricuspid Valve The tricuspid valve is normal in structure and function. There is trace tricuspid regurgitation. Aortic Valve There is mild aortic valve thickening. No aortic regurgitation is present. Pulmonic Valve The pulmonic valve is normal in structure and function. Trace pulmonic valvular regurgitation. Great Vessels The aortic root is normal size. Pericardium/Pleura There is no pericardial effusion. Interpretation Summary There is moderate posterior wall hypokinesis. The right ventricle is normal in size and function. Liang Hernández 02/22/2018 02:12 PM
--- NOTE | 2018-02-22 14:23 | DS ---
Physical Exam: SUBJECTIVE: Patient seen and examined OBJECTIVE: Vital Signs Period Temp Pulse Resp BP Sys/Barrett Pulse Ox Last 24 Hr 97.6 F-98.6 F 71-85 18-20 116-147/71-86 94-96 PHYSICAL EXAM GENERAL: The patient is awake, alert, and fully oriented, in no acute distress. HEAD: Normal with no signs of trauma. EYES: PERRL, extraocular movements intact, sclera anicteric, conjunctiva clear. ENT: Ears normal, nares patent, oropharynx clear without exudates, moist mucous membranes. NECK: Trachea midline, full range of motion, supple. LUNGS: Breath sounds equal, clear to auscultation bilaterally, no wheezes, no crackles, no accessory muscle use. HEART: Regular rate and rhythm, S1, S2 without murmur, rub or gallop. ABDOMEN: Soft, nontender, nondistended, normoactive bowel sounds, no guarding, no rebound, no hepatosplenomegaly, no masses. EXTREMITIES: 2+ pulses, warm, well-perfused, no edema. NEUROLOGICAL: Cranial nerves II through XII grossly intact. Normal speech, gait not observed. PSYCH: Normal mood, normal affect. SKIN: Warm, dry, normal turgor, no rashes or lesions noted. LABS Laboratory Results - last 24 hr 02/22/18 02/22/18 07:15 07:15 WBC 11.9 H RBC 4.10 Hgb 12.4 Hct 37.5 MCV 91.6 MCH 30.2 MCHC 33.0 RDW 13.0 Plt Count 284 MPV 7.0 L Sodium 139 Potassium 4.2 Chloride 106 Carbon Dioxide 26 Anion Gap 7 L BUN 12 Creatinine 0.7 Creat Clearance w eGFR > 60 Random Glucose 113 H Calcium 8.3 L HOSPITAL COURSE: Date of Admission:02/20/18 Date of Discharge: 02/22/18 Minutes to complete discharge: 30 Discharge Summary Reason For Visit: FRACTURE OF INFERIOR PUBIC RAMUS Current Active Problems Dizziness (Acute) Fall (Acute) Fracture of inferior pubic ramus (Acute) Hyperlipidemia (Chronic) Hypothyroid (Chronic) Peripheral neuropathy (Chronic) Condition: Stable - Instructions Diet, Activity, Other Instructions: Diet: Low fat/cholesterol Activity: Weight bearing as tolerated both legs Referrals: David Hooper MD [Primary Care Provider] - Disposition: ASSISTED FACILITY - Home Medications Comprehensive Discharge Medication List: Ambulatory Orders Simvastatin [Zocor] 20 mg PO HS tablet 03/03/13 Levothyroxine [Synthroid -] 50 mcg PO DAILY 02/19/18 Acetaminophen [Tylenol .Extra-Strength -] 500 mg PO Q6H PRN tablet 02/22/18 Heparin - 5,000 unit SQ TID vial 02/22/18 - Discharge Referral Referred to [facility] Med P.C.: No
--- NOTE | 2018-02-22 15:05 | PN ---
Progress Note (short form) - Note Progress Note: LESS PAIN WALKED WITH PT AND WALKER TODAY PLAN: CONTINUE TO MOBILIZE, OK TO TRANSFER TO SNF
[2018-02-22 15:31] VITALS: BP 124/60; PULSE 77; TEMP 98.4
== END 2018-02-22 16:19 | DRG 536 ==
LOC: JER 14:59 → INTOOBSV 20:42 → JERBED 20:42 → J5S 02-20 12:59 → OBSVTOIN 02-20 18:47
PROVIDERS: ADMIT Internal Medicine; ATTEND Internal Medicine
DX: S32.591A Other specified fracture of right pubis, initial encounter for closed fracture (principal); R55 Syncope and collapse; E11.9 Type 2 diabetes mellitus without complications; I10 Essential (primary) hypertension; M81.0 Age-related osteoporosis without current pathological fracture; G62.9 Polyneuropathy, unspecified; G60.0 Hereditary motor and sensory neuropathy; W18.30XA Fall on same level, unspecified, initial encounter; Y92.89 Other specified places as the place of occurrence of the external cause; Y99.8 Other external cause status
CPT/HCPCS: 36415; 70450-TC; 70551-TC; 71045-TC-FY; 73523-TC-FY; 80048; 80053; 80061; 81003; 82550; 83721; 83735; 84100; 84443; 84484; 85025; 85027; 85610; 85730; 86850; 86900; 86901; 87086; 93005; 93010; 93306-TC; 93880-TC; 97116-GP; 97162-GP; 99284-25; G0378; J1644

== ENCOUNTER 2018-07-31 08:06 | Emergency (ER) | payer OTHER | END 2018-07-31 11:44 | disposition home or self-care (01) | LOC: JER 08:06 ==

== ENCOUNTER 2020-03-14 13:56 | Emergency (ER) | payer OTHER ==
[2020-03-14 14:06] VITALS: TEMP 97; BMI 23.2
[2020-03-14 15:23] LABS: BASO % 0.3 % (0-2.0); EOS % 0.3 % (0-4.5); HEMATOCRIT 38.7 % (32.4-45.2); HEMOGLOBIN 12.9 GM/dL (10.7-15.3); LYMPH % 24.6 % (8-40); MCH 30.3 pg (25.7-33.7); MCHC 33.3 g/dl (32.0-36.0); MEAN PLT VOLUME 7.2 fl (7.5-11.1); MONO % 6.7 % (3.8-10.2); NEUT % 68.1 % (42.8-82.8); PLATELET COUNT 297 K/MM3 (134-434); RBC 4.25 M/mm3 (3.60-5.2); WHITE BLOOD COUNT 7.4 K/mm3 (4.0-10.0)
[2020-03-14 15:45] LABS: CALCIUM 8.9 mg/dL (8.5-10.1)
[2020-03-14 15:46] LABS: ALBUMIN 3.6 g/dl (3.4-5.0)
[2020-03-14 15:49] LABS: CREATININE 0.7 mg/dL (0.55-1.3)
[2020-03-14 15:50] LABS: BILIRUBIN,TOTAL 0.4 mg/dL (0.2-1); TOT PROT 7.2 g/dl (6.4-8.2)
[2020-03-14 18:57] VITALS: BP 149/83; PULSE 83
== END 2020-03-14 18:57 | disposition home or self-care (01) ==
LOC: JER 13:56
DX: U07.1 COVID-19 (principal)
CPT/HCPCS: 36415; 71046-TC-FY; 80053; 85025; 93005; 93010; 99284-25; M0239; Q0239

== ENCOUNTER 2021-10-28 17:44 | Emergency (ER) | payer OTHER ==
[2021-10-28 18:00] VITALS: BP 153/62; PULSE 87; RESP 17; TEMP 98; BMI 22.4
== END 2021-10-28 21:01 | disposition home or self-care (01) ==
LOC: JER 17:44
DX: S09.90XA Unspecified injury of head, initial encounter (principal); W01.0XXA Fall on same level from slipping, tripping and stumbling without subsequent striking against object, initial encounter
CPT/HCPCS: 70450-TC; 72125-TC; 73070-TC-LT-FY; 99285-25

== ENCOUNTER 2022-02-19 12:17 | Observation (INO) | payer OTHER ==
[2022-02-19] MEDS ORDERED: ACETAMINOPHEN 1000 MG/100 ML BAG IVPB ONE (14:14)
[2022-02-19] MEDS ORDERED: ACETAMINOPHEN 325 MG TABLET (FP) PO ONE (16:27)
[2022-02-19 17:07] LABS: BASO % 0.6 % (0-2.0); EOS % 0.2 % (0-4.5); HEMATOCRIT 34.6 % (32.4-45.2); HEMOGLOBIN 11.5 GM/dL (10.7-15.3); LYMPH % 10.8 % (8-40); MCH 30.6 pg (25.7-33.7); MCHC 33.4 g/dl (32.0-36.0); MEAN CELL VOLUME 91.5 fl (80-96); MEAN PLT VOLUME 6.5 fl (7.5-11.1); MONO % 4.2 % (3.8-10.2); NEUT % 84.2 % (42.8-82.8); PLATELET COUNT 319 10^3/uL (134-434); RBC 3.78 M/mm3 (3.60-5.2)
[2022-02-19 17:12] LABS: INR 1.09 (0.83-1.09); PROTHROMBIN TIME (PATIENT) 12.5 SEC (9.7-13.0)
[2022-02-19 17:15] LABS: ACTIVATED PTT 31.9 SECONDS (25.2-36.5)
[2022-02-19 17:28] LABS: ALBUMIN 3.7 g/dl (3.4-5.0); BLOOD UREA NITROGEN 13.2 mg/dL (7-18)
[2022-02-19 17:31] LABS: CREATININE 0.7 mg/dL (0.55-1.3)
[2022-02-19 17:32] LABS: BILIRUBIN,TOTAL 0.7 mg/dL (0.2-1); TOT PROT 7.2 g/dl (6.4-8.2)
[2022-02-19] MEDS ORDERED: oxyCODONE HCL 5 MG TABLET PO PRN (17:35)
[2022-02-20] MEDS ORDERED: ACETAMINOPHEN 1000 MG/100 ML BAG IVPB PRN (08:13)
[2022-02-20 09:56] LABS: BASO % 0.4 % (0-2.0); EOS % 0.5 % (0-4.5); HEMATOCRIT 37.1 % (32.4-45.2); HEMOGLOBIN 12.2 GM/dL (10.7-15.3); LYMPH % 10.3 % (8-40); MCH 30.4 pg (25.7-33.7); MEAN PLT VOLUME 6.7 fl (7.5-11.1); NEUT % 83.8 % (42.8-82.8); PLATELET COUNT 340 10^3/uL (134-434); RBC 4.03 M/mm3 (3.60-5.2); RDW 12.9 % (11.6-15.6); WHITE BLOOD COUNT 11.1 K/mm3 (4.0-10.0)
[2022-02-20 10:23] LABS: ALBUMIN 3.2 g/dl (3.4-5.0); BLOOD UREA NITROGEN 17.5 mg/dL (7-18); CALCIUM 8.7 mg/dL (8.5-10.1); MAGNESIUM 2.1 mg/dL (1.8-2.4)
[2022-02-20 10:26] LABS: CREATININE 0.8 mg/dL (0.55-1.3); PHOSPHOROUS 2.6 mg/dL (2.5-4.9)
[2022-02-20 10:27] LABS: BILIRUBIN,TOTAL 0.6 mg/dL (0.2-1); TOT PROT 6.5 g/dl (6.4-8.2)
[2022-02-20] MEDS: ENOXAPARIN NA (PORCINE) 40 MG/0.4 ML DISP.SYRIN SQ SCH (16:22)
[2022-02-20] MEDS ORDERED: LOPERAMIDE HCL 2 MG CAPSULE PO SCH (17:30)
[2022-02-20] MEDS ORDERED: ACETAMINOPHEN 325 MG TABLET (FP) PO ONE (18:14)
[2022-02-20] MEDS: ATORVASTATIN CA 10 MG TABLET (FP) PO SCH (21:37)
[2022-02-21] MEDS: ENOXAPARIN NA (PORCINE) 40 MG/0.4 ML DISP.SYRIN SQ SCH (10:55)
[2022-02-21] MEDS: LEVOTHYROXINE NA 50 MCG TABLET (FP) PO SCH (10:55)
[2022-02-21] MEDS: ATORVASTATIN CA 10 MG TABLET (FP) PO SCH (22:38)
[2022-02-22] MEDS: LEVOTHYROXINE NA 50 MCG TABLET (FP) PO SCH (06:05)
[2022-02-22] MEDS: ENOXAPARIN NA (PORCINE) 40 MG/0.4 ML DISP.SYRIN SQ SCH (09:38)
[2022-02-22] MEDS: ATORVASTATIN CA 10 MG TABLET (FP) PO SCH (23:02)
[2022-02-23] MEDS: LEVOTHYROXINE NA 50 MCG TABLET (FP) PO SCH (06:23)
[2022-02-23] MEDS: ENOXAPARIN NA (PORCINE) 40 MG/0.4 ML DISP.SYRIN SQ SCH (09:50)
[2022-02-23] MEDS ORDERED: DOCUSATE SODIUM 100 MG CAPSULE (FP) PO PRN (10:12)
[2022-02-23] MEDS ORDERED: ACETAMINOPHEN 1000 MG/100 ML BAG IVPB PRN (10:12)
[2022-02-23] MEDS: ATORVASTATIN CA 10 MG TABLET (FP) PO SCH (22:06)
[2022-02-24] MEDS: LEVOTHYROXINE NA 50 MCG TABLET (FP) PO SCH (06:16)
[2022-02-24 08:10] LABS: HEMATOCRIT 38.7 % (32.4-45.2); HEMOGLOBIN 12.7 GM/dL (10.7-15.3); MCHC 32.8 g/dl (32.0-36.0); MEAN CELL VOLUME 91.5 fl (80-96); MEAN PLT VOLUME 6.7 fl (7.5-11.1); PLATELET COUNT 360 10^3/uL (134-434); RBC 4.23 M/mm3 (3.60-5.2)
[2022-02-24 08:30] LABS: CALCIUM 9.2 mg/dL (8.5-10.1)
[2022-02-24 08:31] LABS: ALBUMIN 3.1 g/dl (3.4-5.0); BLOOD UREA NITROGEN 18.5 mg/dL (7-18)
[2022-02-24 08:34] LABS: CREATININE 0.6 mg/dL (0.55-1.3)
[2022-02-24 08:36] LABS: BILIRUBIN,TOTAL 0.5 mg/dL (0.2-1); TOT PROT 6.5 g/dl (6.4-8.2)
[2022-02-24] MEDS: ENOXAPARIN NA (PORCINE) 40 MG/0.4 ML DISP.SYRIN SQ SCH (11:29)
[2022-02-24] MEDS ORDERED: ACETAMINOPHEN 325 MG TABLET (FP) PO PRN (17:26)
[2022-02-24] MEDS ORDERED: traMADol HCL 50 MG TABLET PO PRN (17:26)
[2022-02-24] MEDS: ATORVASTATIN CA 10 MG TABLET (FP) PO SCH (21:21)
[2022-02-25] MEDS: LEVOTHYROXINE NA 50 MCG TABLET (FP) PO SCH (06:10)
[2022-02-25] MEDS: ENOXAPARIN NA (PORCINE) 40 MG/0.4 ML DISP.SYRIN SQ SCH (10:08)
[2022-02-25] MEDS: ATORVASTATIN CA 10 MG TABLET (FP) PO SCH (21:35)
[2022-02-26] MEDS: LEVOTHYROXINE NA 50 MCG TABLET (FP) PO SCH (06:44)
[2022-02-26] MEDS: LIDOCAINE 5% TOPICAL PATCH TP SCH (11:23)
[2022-02-26] MEDS: ENOXAPARIN NA (PORCINE) 40 MG/0.4 ML DISP.SYRIN SQ SCH (11:23)
[2022-02-26] MEDS: ATORVASTATIN CA 10 MG TABLET (FP) PO SCH (21:49)
[2022-02-26] MEDS ORDERED: LIDOCAINE PATCH REMOVAL MC SCH (22:00)
[2022-02-27] MEDS: LEVOTHYROXINE NA 50 MCG TABLET (FP) PO SCH (06:25)
[2022-02-27] MEDS: LIDOCAINE 5% TOPICAL PATCH TP SCH (10:41)
[2022-02-27 12:44] VITALS: BMI 22.8
[2022-02-27 13:16] VITALS: BP 133/70; PULSE 88; TEMP 98.3
[2022-02-27 13:18] VITALS: RESP 18
== END 2022-02-27 18:50 | disposition home or self-care (01) ==
LOC: JER 12:17 → JERBED 16:37 → J7W 20:31
PROVIDERS: ADMIT Internal Medicine; ATTEND Internal Medicine
PROC: 3E023GC Introduction of Other Therapeutic Substance into Muscle, Percutaneous Approach (ICD-10-PCS; principal; 2022-02-19)
DX: S70.02XA Contusion of left hip, initial encounter (principal); E03.9 Hypothyroidism, unspecified; E78.5 Hyperlipidemia, unspecified; W18.39XA Other fall on same level, initial encounter; Y93.89 Activity, other specified; Y92.009 Unspecified place in unspecified non-institutional (private) residence as the place of occurrence of the external cause; R29.6 Repeated falls; M84.459A Pathological fracture, hip, unspecified, initial encounter for fracture; R42 Dizziness and giddiness
CPT/HCPCS: 36415; 70450-TC; 71046-TC-FY; 72125-TC; 72170-TC-FY; 73552-TC-LT-FY; 80053; 83735; 84100; 84443; 84484; 85025; 85027; 85610; 85730; 93005; 93010; 96372; 97116-GP; 97161-GP; 99285-25; C9803-CS; G0378; U0003; U0005

== ENCOUNTER 2022-11-14 20:19 | Emergency (ER) | payer OTHER ==
[2022-11-14 20:29] VITALS: TEMP 97.9; BMI 22.8
[2022-11-14 22:04] VITALS: BP 154/74; PULSE 68; RESP 18
== END 2022-11-14 22:06 | disposition home or self-care (01) ==
LOC: JER 20:19
DX: S42.031A Displaced fracture of lateral end of right clavicle, initial encounter for closed fracture (principal); W01.198A Fall on same level from slipping, tripping and stumbling with subsequent striking against other object, initial encounter
CPT/HCPCS: 70450-TC; 72125-TC; 73030-TC-RT-FY; 99284-25

== ENCOUNTER 2023-03-09 16:27 | Emergency (ER) | payer OTHER ==
[2023-03-09 16:37] VITALS: BP 155/93; PULSE 64; RESP 20; TEMP 98.2; BMI 23.0
[2023-03-09 18:39] LABS: BASO % 0.8 % (0-2.0); EOS % 0.5 % (0-4.5); HEMATOCRIT 42.1 % (32.4-45.2); HEMOGLOBIN 13.8 GM/dL (10.7-15.3); LYMPH % 16.2 % (8-40); MCHC 32.7 g/dl (32.0-36.0); MEAN CELL VOLUME 91.9 fl (80-96); MEAN PLT VOLUME 6.7 fl (7.5-11.1); NEUT % 77.5 % (42.8-82.8); PLATELET COUNT 375 10^3/uL (134-434); RBC 4.58 M/mm3 (3.60-5.2); RDW 13.3 % (11.6-15.6); WHITE BLOOD COUNT 11.9 K/mm3 (4.0-10.0)
[2023-03-09 19:00] LABS: CALCIUM 9.5 mg/dL (8.5-10.1)
[2023-03-09 19:01] LABS: ALBUMIN 3.8 g/dl (3.4-5.0); BLOOD UREA NITROGEN 12.4 mg/dL (7-18); MAGNESIUM 2.1 mg/dL (1.8-2.4)
[2023-03-09 19:04] LABS: CREATININE 0.6 mg/dL (0.55-1.3); PHOSPHOROUS 3.8 mg/dL (2.5-4.9)
[2023-03-09 19:06] LABS: BILIRUBIN,TOTAL 0.3 mg/dL (0.2-1); TOT PROT 7.5 g/dl (6.4-8.2)
== END 2023-03-09 19:52 | disposition home or self-care (01) ==
LOC: JER 16:27
DX: R42 Dizziness and giddiness (principal); R07.89 Other chest pain
CPT/HCPCS: 36415; 71045-TC-FY; 80053; 83735; 84100; 84484; 85025; 93005; 93010; 99285-25

== ENCOUNTER 2023-03-31 16:58 | Emergency (ER) | payer OTHER ==
[2023-03-31 17:04] VITALS: BMI 20.2
[2023-03-31] MEDS ORDERED: ACETAMINOPHEN 1000 MG/100 ML BAG IVPB ONE (18:46)
[2023-03-31 19:02] VITALS: RESP 18
[2023-03-31 19:10] LABS: BASO % 0.9 % (0-2.0); EOS % 0.9 % (0-4.5); HEMATOCRIT 42.1 % (32.4-45.2); LYMPH % 17.8 % (8-40); MCH 30.5 pg (25.7-33.7); MCHC 33.2 g/dl (32.0-36.0); MEAN CELL VOLUME 91.8 fl (80-96); MEAN PLT VOLUME 6.6 fl (7.5-11.1); MONO % 4.6 % (3.8-10.2); NEUT % 75.8 % (42.8-82.8); PLATELET COUNT 354 10^3/uL (134-434); RBC 4.59 M/mm3 (3.60-5.2); RDW 12.9 % (11.6-15.6); WHITE BLOOD COUNT 10.2 K/mm3 (4.0-10.0)
[2023-03-31 19:14] LABS: EPI CELLS 1 /uL (0-25.1); HYALINE CASTS 0 /uL (0-3.1); PH,URINE 7.5 (5.0-8.0); URINE APPEARANCE CLEAR; URINE BACTERIA 2362 /uL (0-1359); URINE BILIRUBIN NEGATIVE (NEGATIVE); URINE COLOR YELLOW; URINE GLUCOSE (UA) NEGATIVE (NEGATIVE); URINE KETONE NEGATIVE (NEGATIVE); URINE LEUK ESTERASE 1+ (NEGATIVE); URINE NITRITE NEGATIVE (NEGATIVE); URINE PROTEIN NEGATIVE (NEGATIVE); URINE RBC 51 /uL (0-23.9); URINE UROBILINOGEN 0.2 mg/dL (0.2-1.0); URINE WBC 113 /uL (0-25.8)
[2023-03-31] MEDS ORDERED: SODIUM CHLORIDE 0.9% 1000 ML INFUS.BAG IV ONE (19:14)
[2023-03-31 19:16] LABS: PROTHROMBIN TIME (PATIENT) 11.6 SEC (9.7-13.0)
[2023-03-31 19:18] LABS: ACTIVATED PTT 32.2 SECONDS (25.2-36.5)
[2023-03-31 19:35] LABS: POTASSIUM 3.9 mmol/L (3.5-5.1)
[2023-03-31] MEDS ORDERED: ACETAMINOPHEN INJECTION 100 ML IVPB ONE (19:35)
[2023-03-31 19:36] LABS: CALCIUM 9.4 mg/dL (8.5-10.1)
[2023-03-31 19:37] LABS: ALBUMIN 3.9 g/dl (3.4-5.0); BLOOD UREA NITROGEN 12.1 mg/dL (7-18)
[2023-03-31 19:40] LABS: CREATININE 0.7 mg/dL (0.55-1.3)
[2023-03-31 19:42] LABS: BILIRUBIN,TOTAL 0.5 mg/dL (0.2-1); TOT PROT 7.4 g/dl (6.4-8.2)
[2023-03-31 19:48] VITALS: BP 165/82; PULSE 68; TEMP 97.9
[2023-03-31] MEDS ORDERED: CEFTRIAXONE 1,000 MG in DEXTROSE 5%-WATER - 50 ML IVPB ONE (21:25)
[2023-03-31] MEDS ORDERED: cefTRIAXone SODIUM 1 GM VIAL ONE (21:38)
[2023-03-31] MEDS ORDERED: CEPHALEXIN MONOHYDRATE 500 MG CAPSULE (UD) PO ONE (21:48)
[2023-03-31] MEDS ORDERED: CEPHALEXIN MONOHYDRATE 500 MG CAPSULE (UD) ONE (21:52)
== END 2023-03-31 22:08 | disposition left against medical advice (07) ==
LOC: JER 16:58
PROC: 3E033NZ Introduction of Analgesics, Hypnotics, Sedatives into Peripheral Vein, Percutaneous Approach (ICD-10-PCS; principal; 2023-03-31)
DX: R07.9 Chest pain, unspecified (principal); N39.0 Urinary tract infection, site not specified; R42 Dizziness and giddiness; R30.0 Dysuria; R00.2 Palpitations; Z20.822 Contact with and (suspected) exposure to COVID-19
CPT/HCPCS: 0241U-QW; 36415; 71046-TC-FY; 80053; 81003; 82550; 82962; 84443; 84484; 85025; 85610; 85730; 87086; 87186; 93005; 93010; 99285-25; J0131

== ENCOUNTER 2023-04-04 15:42 | Emergency (ER) | payer OTHER ==
[2023-04-04] MEDS ORDERED: MAG HYDROX/AL HYDROX/SIMETH 30 ML UNIT-DOSE CUP PO ONE (16:22)
[2023-04-04] MEDS ORDERED: FAMOTIDINE 20 MG/50 ML IVPB 20 MG/50 ML MG IVPB ONE ×2 (16:22→17:02)
[2023-04-04 16:27] VITALS: RESP 20; TEMP 97.7; BMI 20.9
[2023-04-04] MEDS ORDERED: MAG HYDROX/AL HYDROX/SIMETH 30 ML UNIT-DOSE CUP ONE (17:02)
[2023-04-04 17:12] LABS: BASO % 0.6 % (0-2.0); EOS % 0.5 % (0-4.5); HEMATOCRIT 40.4 % (32.4-45.2); HEMOGLOBIN 13.9 GM/dL (10.7-15.3); LYMPH % 16.8 % (8-40); MCHC 34.3 g/dl (32.0-36.0); MEAN CELL VOLUME 90.4 fl (80-96); MEAN PLT VOLUME 6.7 fl (7.5-11.1); MONO % 4.8 % (3.8-10.2); NEUT % 77.3 % (42.8-82.8); PLATELET COUNT 333 10^3/uL (134-434); RBC 4.47 M/mm3 (3.60-5.2); RDW 13.1 % (11.6-15.6); WHITE BLOOD COUNT 10.7 K/mm3 (4.0-10.0)
[2023-04-04 17:18] LABS: EPI CELLS 2 /uL (0-25.1); HYALINE CASTS 0 /uL (0-3.1); URINE APPEARANCE CLEAR; URINE BACTERIA 5 /uL (0-1359); URINE BILIRUBIN NEGATIVE (NEGATIVE); URINE COLOR YELLOW; URINE GLUCOSE (UA) NEGATIVE (NEGATIVE); URINE KETONE NEGATIVE (NEGATIVE); URINE LEUK ESTERASE NEGATIVE (NEGATIVE); URINE NITRITE NEGATIVE (NEGATIVE); URINE PROTEIN NEGATIVE (NEGATIVE); URINE RBC 30 /uL (0-23.9); URINE UROBILINOGEN 0.2 mg/dL (0.2-1.0); URINE WBC 6 /uL (0-25.8)
[2023-04-04 17:20] LABS: INR 1.02 (0.83-1.09); PROTHROMBIN TIME (PATIENT) 11.8 SEC (9.7-13.0)
[2023-04-04 17:22] LABS: ACTIVATED PTT 31.2 SECONDS (25.2-36.5)
[2023-04-04 17:31] LABS: POTASSIUM 3.8 mmol/L (3.5-5.1)
[2023-04-04 17:33] LABS: CALCIUM 9.2 mg/dL (8.5-10.1)
[2023-04-04 17:34] LABS: ALBUMIN 3.8 g/dl (3.4-5.0); BLOOD UREA NITROGEN 12.8 mg/dL (7-18)
[2023-04-04 17:37] LABS: BILIRUBIN,TOTAL 0.4 mg/dL (0.2-1); CREATININE 0.7 mg/dL (0.55-1.3); TOT PROT 7.7 g/dl (6.4-8.2)
[2023-04-04 19:58] VITALS: BP 155/76; PULSE 77
== END 2023-04-04 20:00 | disposition left against medical advice (07) ==
LOC: JER 15:42
PROC: 3E033GC Introduction of Other Therapeutic Substance into Peripheral Vein, Percutaneous Approach (ICD-10-PCS; principal; 2023-04-04)
DX: R07.89 Other chest pain (principal); R42 Dizziness and giddiness; R10.13 Epigastric pain; R55 Syncope and collapse; Z20.822 Contact with and (suspected) exposure to COVID-19
CPT/HCPCS: 0241U-QW; 36415; 71045-TC-FY; 80053; 81003; 83690; 84484; 85025; 85610; 85730; 87086; 93005; 93010; 99285-25